=== PATIENT | female | born 1940 | race African-American/Black ===

== ENCOUNTER 2024-04-19 21:33 | Inpatient (IN) | payer OTHER ==
[2024-04-19] MEDS ORDERED: ACETAMINOPHEN INJECTION 100 ML ONE (21:38)
[2024-04-19] MEDS ORDERED: KETAMINE HCL 200 MG/20 ML VIAL ONE (21:44)
[2024-04-19] MEDS ORDERED: ROCURONIUM BROMIDE 50 MG/5 ML VIAL ONE ×2 (21:44→21:46)
[2024-04-19] MEDS: ROCURONIUM BROMIDE 50 MG/5 ML VIAL IVPUSH ONE (22:08)
[2024-04-19] MEDS: KETAMINE HCL 200 MG/20 ML VIAL IVPUSH ONE (22:08)
[2024-04-19] MEDS: LACTATED RINGERS SOLUTION 1000 ML INFUS.BAG IV ONE (22:08)
[2024-04-19] MEDS: ACETAMINOPHEN 1000 MG/100 ML BAG IVPB ONE (22:10)
[2024-04-19 22:30] LABS: HEMATOCRIT 29.2 % (32.4-45.2); HEMOGLOBIN 8.9 GM/dL (10.7-15.3); MCH 25.4 pg (25.7-33.7); MCHC 30.4 g/dl (32.0-36.0); MEAN CELL VOLUME 83.7 fl (80-96); MEAN PLT VOLUME 8.8 fl (7.5-11.1); PLATELET COUNT 415 10^3/uL (134-434); RBC 3.48 M/mm3 (3.60-5.2); RDW 19.5 % (11.6-15.6); WHITE BLOOD COUNT 6.3 K/mm3 (4.0-10.0)
[2024-04-19 22:32] LABS: INR 1.69 (0.83-1.09); PROTHROMBIN TIME (PATIENT) 18.8 SEC (9.7-13.0)
[2024-04-19 22:34] LABS: ACTIVATED PTT 27.1 SECONDS (25.2-36.5); ADD RBC MORPHOLOGY YES
[2024-04-19 22:36] LABS: EPI CELLS 13 /uL (0-25.1); HYALINE CASTS 3 /uL (0-3.1); PH,URINE 6.5 (5.0-8.0); URINE APPEARANCE CLEAR; URINE BACTERIA 14 /uL (0-1359); URINE BILIRUBIN NEGATIVE (NEGATIVE); URINE COLOR DK YELLOW; URINE GLUCOSE (UA) NEGATIVE (NEGATIVE); URINE KETONE NEGATIVE (NEGATIVE); URINE LEUK ESTERASE TRACE (NEGATIVE); URINE NITRITE NEGATIVE (NEGATIVE); URINE PROTEIN 2+ (NEGATIVE); URINE RBC 19 /uL (0-23.9); URINE WBC 11 /uL (0-25.8)
[2024-04-19 22:41] LABS: POTASSIUM 3.3 mmol/L (3.5-5.1)
[2024-04-19 22:43] LABS: CALCIUM 8.1 mg/dL (8.5-10.1)
[2024-04-19 22:44] LABS: ALBUMIN 1.4 g/dl (3.4-5.0); BLOOD UREA NITROGEN 41.1 mg/dL (7-18)
[2024-04-19 22:48] LABS: BILIRUBIN,TOTAL 0.4 mg/dL (0.2-1); TOT PROT 6.3 g/dl (6.4-8.2)
[2024-04-19 22:52] LABS: N-TERMINAL BNP 2004.4 pg/ml (5-450)
[2024-04-19 22:54] LABS: LACTIC ACID 5.1 mmol/L (0.4-2.0)
[2024-04-19 23:21] LABS: ANISOCYTOSIS 2+; MACROCYTOSIS 1+
[2024-04-20] MEDS ORDERED: KCL 10 MEQ IVPB 10 MEQ/100 ML INFUS.BAG IVPB ONE (00:35)
[2024-04-20 01:09] LABS: ARTERIAL BLOOD GAS BASE EXCESS -7.3 mmol/L (-2-2); ARTERIAL BLOOD GAS PO2 81.5 mmHg (80-100)
[2024-04-20] MEDS ORDERED: NOREPINEPHRINE BITARTRATE/D5W 8 MG/250 ML BAG IVPB ONE (01:17)
[2024-04-20 01:21] LABS: ALLENS TEST POSITIVE
[2024-04-20 01:22] LABS: VENT MODE A/C; VENT RATE 15
[2024-04-20 01:23] LABS: ARTERIAL BLOOD GAS pH 7.067 (7.350-7.450)
[2024-04-20] MEDS: NOREPINEPHRINE BITARTRATE/D5W 8 MG/250 ML BAG IVPB SCH (01:28)
[2024-04-20] MEDS: LACTATED RINGERS SOLUTION 1000 ML INFUS.BAG IV ONE ×2 (01:35→10:46)
[2024-04-20] MEDS: KCL 10 MEQ IVPB 10 MEQ/100 ML INFUS.BAG IVPB SCH (01:50)
[2024-04-20] MEDS ORDERED: VASopressin 20 UNITS/ML VIAL IV ONE (02:46)
[2024-04-20] MEDS: VASopressin 40 UNITS/100 ML BAG IV SCH (03:07)
[2024-04-20] MEDS: MUPIROCIN 2% TOPICAL OINTMENT FOR DECOLONIZATION NS SCH (03:07)
[2024-04-20] MEDS: FENTANYL NS IVPB 500 MCG/100 ML BAG IVPB SCH (03:07)
[2024-04-20] MEDS: VANCOMYCIN/WATER FOR INJ (PEG) 1,000 MG/200 ML BAG IVPB ONE (03:09)
[2024-04-20] MEDS: HYDROCORTISONE SOD SUCCINATE 100 MG/2 ML VIAL IVPUSH SCH (03:09)
[2024-04-20] MEDS: PROPOFOL 1,000,000 MCG/100 ML VIAL IVPB SCH (06:12)
[2024-04-20 06:13] LABS: ARTERIAL BLD GAS O2 SATURATION 97.7 % (95-98); ARTERIAL BLOOD GAS BASE EXCESS -7.6 mmol/L (-2-2); ARTERIAL BLOOD GAS PO2 110.1 mmHg (80-100); ARTERIAL BLOOD GAS pH 7.324 (7.350-7.450)
[2024-04-20 06:15] LABS: VENT MODE V-A/C; VENT RATE 26
[2024-04-20 08:12] LABS: INR 1.38 (0.83-1.09); PROTHROMBIN TIME (PATIENT) 15.5 SEC (9.7-13.0)
[2024-04-20 08:14] LABS: ACTIVATED PTT 31.9 SECONDS (25.2-36.5)
[2024-04-20 08:15] LABS: HEMATOCRIT 23.4 % (32.4-45.2); MCH 25.8 pg (25.7-33.7); MEAN CELL VOLUME 86.3 fl (80-96); MEAN PLT VOLUME 8.9 fl (7.5-11.1); PLATELET COUNT 279 10^3/uL (134-434); RBC 2.71 M/mm3 (3.60-5.2); RDW 19.4 % (11.6-15.6)
[2024-04-20 08:19] LABS: POTASSIUM 4.4 mmol/L (3.5-5.1)
[2024-04-20 08:26] LABS: CREATININE 0.9 mg/dL (0.55-1.3); MAGNESIUM 1.9 mg/dL (1.8-2.4)
[2024-04-20 08:27] LABS: LACTIC ACID 6.5 mmol/L (0.4-2.0)
[2024-04-20 08:28] LABS: ALBUMIN 1.4 g/dl (3.4-5.0); BLOOD UREA NITROGEN 46.2 mg/dL (7-18); CALCIUM 8.1 mg/dL (8.5-10.1); TOT PROT 5.8 g/dl (6.4-8.2)
[2024-04-20 08:32] LABS: BILIRUBIN,TOTAL 0.6 mg/dL (0.2-1); PHOSPHOROUS 4.4 mg/dL (2.5-4.9)
[2024-04-20] MEDS: PANTOPRAZOLE SODIUM 40 MG VIAL IVPUSH SCH (09:10)
[2024-04-20 09:18] LABS: ANISOCYTOSIS 2+; MACROCYTOSIS 0
[2024-04-20 10:24] LABS: LACTIC ACID 7.4 mmol/L (0.4-2.0)
[2024-04-20] MEDS: VANCOMYCIN/WATER FOR INJ (PEG) 1,000 MG/200 ML BAG IVPB SCH (15:21)
[2024-04-20] MEDS: CEFEPIME 1 GM in DEXTROSE 5%-WATER 100 ML IVPB SCH (17:19)
[2024-04-20 19:51] LABS: LACTIC ACID 6.4 mmol/L (0.4-2.0)
[2024-04-20] MEDS ORDERED: ACETAMINOPHEN 325 MG TABLET (FP) PO PRN (20:56)
[2024-04-20] MEDS: LACTATED RINGERS SOLUTION 1,000 ML/1,000 ML INFUS.BAG IV ONE (21:00)
[2024-04-20] MEDS: CHLORHEXIDINE GLUCONATE 4% CLEANSER FOR DECOLONIZATION TP SCH (22:09)
[2024-04-20 23:09] LABS: LACTIC ACID 6.6 mmol/L (0.4-2.0)
[2024-04-21 07:36] LABS: HEMATOCRIT 18.4 % (32.4-45.2); MCH 25.6 pg (25.7-33.7); MCHC 30.8 g/dl (32.0-36.0); MEAN PLT VOLUME 8.8 fl (7.5-11.1); PLATELET COUNT 171 10^3/uL (134-434); RBC 2.21 M/mm3 (3.60-5.2); RDW 18.9 % (11.6-15.6); WHITE BLOOD COUNT 20.3 K/mm3 (4.0-10.0)
[2024-04-21 07:53] LABS: LACTIC ACID 4.9 mmol/L (0.4-2.0)
[2024-04-21 08:05] LABS: POTASSIUM 3.5 mmol/L (3.5-5.1)
[2024-04-21 08:12] LABS: CALCIUM 7.5 mg/dL (8.5-10.1)
[2024-04-21 08:13] LABS: ALBUMIN 1.3 g/dl (3.4-5.0); BLOOD UREA NITROGEN 30.1 mg/dL (7-18); MAGNESIUM 1.9 mg/dL (1.8-2.4)
[2024-04-21 08:16] LABS: CREATININE 0.5 mg/dL (0.55-1.3); HEMOGLOBIN 5.7 GM/dL (10.7-15.3); PHOSPHOROUS 2.7 mg/dL (2.5-4.9)
[2024-04-21 08:17] LABS: BILIRUBIN,TOTAL 0.5 mg/dL (0.2-1)
[2024-04-21 09:14] LABS: ANISOCYTOSIS 0; MACROCYTOSIS 0
[2024-04-21] MEDS: FLUDROCORTISONE ACETATE 0.1 MG TABLET (FP) NGT SCH (09:27)
[2024-04-21 10:20] LABS: ALLENS TEST POSITIVE; ARTERIAL BLD GAS O2 SATURATION 95.4 % (95-98); ARTERIAL BLOOD GAS BASE EXCESS -3.3 mmol/L (-2-2); ARTERIAL BLOOD GAS PO2 74.7 mmHg (80-100); ARTERIAL BLOOD GAS pH 7.419 (7.350-7.450)
[2024-04-21 10:21] LABS: VENT MODE A/C; VENT RATE 26
[2024-04-21 14:55] VITALS: BMI 19.1
[2024-04-21 15:10] LABS: LACTIC ACID 3.4 mmol/L (0.4-2.0)
[2024-04-21 22:31] LABS: HEMATOCRIT 32.2 % (32.4-45.2); HEMOGLOBIN 10.8 GM/dL (10.7-15.3); MCH 27.9 pg (25.7-33.7); MCHC 33.6 g/dl (32.0-36.0); MEAN CELL VOLUME 83.2 fl (80-96); MEAN PLT VOLUME 8.7 fl (7.5-11.1); PLATELET COUNT 155 10^3/uL (134-434); RBC 3.87 M/mm3 (3.60-5.2); RDW 15.9 % (11.6-15.6)
[2024-04-21 23:39] LABS: LACTIC ACID 2.9 mmol/L (0.4-2.0)
[2024-04-22 07:05] LABS: HEMATOCRIT 30.7 % (32.4-45.2); HEMOGLOBIN 10.3 GM/dL (10.7-15.3); MCH 28.1 pg (25.7-33.7); MCHC 33.5 g/dl (32.0-36.0); MEAN CELL VOLUME 84.1 fl (80-96); MEAN PLT VOLUME 9.1 fl (7.5-11.1); PLATELET COUNT 137 10^3/uL (134-434); RBC 3.66 M/mm3 (3.60-5.2); RDW 15.6 % (11.6-15.6); WHITE BLOOD COUNT 26.4 K/mm3 (4.0-10.0)
[2024-04-22 07:15] LABS: POTASSIUM 3.3 mmol/L (3.5-5.1)
[2024-04-22 07:18] LABS: BLOOD UREA NITROGEN 33.7 mg/dL (7-18); CALCIUM 7.2 mg/dL (8.5-10.1)
[2024-04-22 07:21] LABS: ALBUMIN 1.1 g/dl (3.4-5.0); CREATININE 0.4 mg/dL (0.55-1.3)
[2024-04-22 07:23] LABS: BILIRUBIN,TOTAL 0.9 mg/dL (0.2-1); TOT PROT 4.9 g/dl (6.4-8.2)
[2024-04-22 07:35] LABS: LACTIC ACID 2.5 mmol/L (0.4-2.0)
[2024-04-22] MEDS: KCL 10 MEQ IVPB 10 MEQ/100 ML INFUS.BAG IVPB SCH (08:10)
[2024-04-22 09:21] LABS: INR 1.18 (0.83-1.09); PROTHROMBIN TIME (PATIENT) 13.5 SEC (9.7-13.0)
[2024-04-22 09:24] LABS: ACTIVATED PTT 28.4 SECONDS (25.2-36.5)
[2024-04-22] MEDS: LACTATED RINGERS SOLUTION 1,000 ML/1,000 ML INFUS.BAG IV STA (17:12)
[2024-04-22] MEDS: HYDROCORTISONE SOD SUCCINATE 100 MG/2 ML VIAL IVPUSH SCH (17:14)
[2024-04-22 18:42] VITALS: TEMP 99.1
[2024-04-22] MEDS: ALBUTEROL SO4 2.5/IPRATROPIUM 0.5 INH SOL 3 ML VIAL.NEB. NEB STA (20:46)
[2024-04-23 00:18] VITALS: PULSE 88
[2024-04-23 02:06] VITALS: RESP 37
[2024-04-23 04:34] VITALS: BP 66/38
[2024-04-23] MEDS ORDERED: VANCOMYCIN/WATER FOR INJ (PEG) 1,000 MG/200 ML BAG IVPB SCH (06:00)
== END 2024-04-23 04:12 | disposition expired | DRG 871 ==
LOC: JER 21:33 → JICU 23:01
PROVIDERS: ADMIT Internal Medicine Pulmonary Disease; ATTEND Internal Medicine Pulmonary Disease
PROC: 5A1945Z Respiratory Ventilation, 24-96 Consecutive Hours (ICD-10-PCS; principal; 2024-04-19)
PROC: 0BH17EZ Insertion of Endotracheal Airway into Trachea, Via Natural or Artificial Opening (ICD-10-PCS; 2024-04-19)
PROC: 06HN33Z Insertion of Infusion Device into Left Femoral Vein, Percutaneous Approach (ICD-10-PCS; 2024-04-20)
PROC: B54CZZA Ultrasonography of Left Lower Extremity Veins, Guidance (ICD-10-PCS; 2024-04-20)
PROC: 30233N1 Transfusion of Nonautologous Red Blood Cells into Peripheral Vein, Percutaneous Approach (ICD-10-PCS; 2024-04-21)
PROC: 05H833Z Insertion of Infusion Device into Left Axillary Vein, Percutaneous Approach (ICD-10-PCS; 2024-04-22)
PROC: B54NZZA Ultrasonography of Left Upper Extremity Veins, Guidance (ICD-10-PCS; 2024-04-22)
DX: A41.9 Sepsis, unspecified organism (principal); E43 Unspecified severe protein-calorie malnutrition; L89.154 Pressure ulcer of sacral region, stage 4; J18.9 Pneumonia, unspecified organism; J96.01 Acute respiratory failure with hypoxia; J96.02 Acute respiratory failure with hypercapnia; D61.818 Other pancytopenia; E87.20 Acidosis, unspecified; I24.89 Other forms of acute ischemic heart disease; E87.0 Hyperosmolality and hypernatremia; N17.9 Acute kidney failure, unspecified; D62 Acute posthemorrhagic anemia; Z68.1 Body mass index [BMI] 19.9 or less, adult; F03.90 Unspecified dementia, unspecified severity, without behavioral disturbance, psychotic disturbance, mood disturbance, and anxiety; R65.20 Severe sepsis without septic shock; I99.8 Other disorder of circulatory system; D63.8 Anemia in other chronic diseases classified elsewhere
CPT/HCPCS: 0241U-QW; 36415; 36430; 36600; 71045-TC-FY; 75635-TC; 80053; 81003; 82550; 82553; 82803; 82962; 83605; 83735; 83880; 84100; 84436; 84479; 84484; 85025; 85027; 85610; 85730; 86850; 86900; 86901; 86922; 87040; 87070; 87086; 87186; 87205; 87899; 93005; 93010; 94002; 94640; 99285-25; G0480; J0131; J3490; P9058; Q9967